=== PATIENT | male | born 1955 | race Caucasian/White ===

== ENCOUNTER 2019-07-16 16:12 | Emergency (ER) | payer BC ==
[~2019-07-16] VITALS: Ht 172.7 cm; Wt 122.5 kg
[2019-07-16 16:38] VITALS: BP 154/98
--- NOTE | 2019-07-16 16:45 | NUR ---
63 Y/O M PRESENTS TO ER C/O SPINTERS IN FINGERS. SPLINTERS IN RIGHT HAND FIRST DIGIT, AND RIGHT PALM X 2 DAYS. PT ALSO HAS SPLINTER IN LEFT FIRST DIGIT X 2 MONTHS. PAIN LEVEL 7/10, ACHING. ALLERGIES: NKA. MED HX: NONE. SURGERY: STENT PLACEMENT IN 2005 AND A FOOT SURGERY. PT SITTING IN CHAIR C. MITCHEL MADE AWARE OF PT STATUS.
--- NOTE | 2019-07-16 16:45 | NUR ---
Note undone in EDM - 07/16/19 at [address] [facility] 63 Y/O M PRESENTS TO ER C/O SPINTERS IN FINGERS. SPLINTERS IN RIGHT HAND FIRST DIGIT, AND RIGHT PALM X 2 DAYS. PT ALSO HAS SPLINTER IN LEFT FIRST DIGIT X 2 MONTHS. PAIN LEVEL 7/10, ACHING. ALLERGIES: NKA. MED HX: NONE. SURGERY: STENT PLACEMENT IN 2005 AND A FOOT SURGERY. PT SITTING IN CHAIR John GRULLON MADE AWARE OF PT STATUS.
[2019-07-16] MEDS ORDERED: LIDOCAINE MPF 1% 10 MG/ML VIAL INJ ONE (17:15)
--- NOTE | 2019-07-16 17:58 | NUR ---
PATIENT AMBULATE TO BED 1.
--- NOTE | 2019-07-16 18:39 | NUR ---
MITCHEL PUGH GIVEN LIDOCAIN, 15 BLADE AND BETADINE AT BEDSIDE FOR PROCEDURE
[2019-07-16 19:04] VITALS: BP 139/69
--- NOTE | 2019-07-16 19:08 | NUR ---
gave report to [facility]
--- NOTE | 2019-07-16 19:08 | NUR ---
REPORT RECEIVED FROM MARCY AVALOS. ASSUMED CARE AT THIS TIME. PT IN STABLE CONDITON.
--- NOTE | 2019-07-16 19:40 | NUR ---
BACITRACIN AND A NON ADHERENT GAUZE PLACED ON PTS WOUND. PTS PMSC WNL.
[2019-07-16] MEDS ORDERED: BACITRACIN OINT 500 UNITS/GM PKT TP ONE (19:50)
--- NOTE | 2019-07-16 19:56 | NUR ---
Patient discharged with v/s stable. Written and verbal after care instructions given and explained. Patient alert, oriented and verbalized understanding of instructions. Ambulatory with steady gait. All questions addressed prior to discharge. ID band removed. Patient advised to follow up with PMD. Rx of keflex, bacitrcin, and ibuprofen given. Patient educated on indication of medication including possible reaction and side effects. Opportunity to ask questions provided and answered.
== END 2019-07-16 19:56 | disposition home or self-care (01) ==
LOC: MED 16:12
DX: S60.552A Superficial foreign body of left hand, initial encounter (principal); S60.551A Superficial foreign body of right hand, initial encounter; I10 Essential (primary) hypertension; Z86.79 Personal history of other diseases of the circulatory system; W45.8XXA Other foreign body or object entering through skin, initial encounter; Y93.89 Activity, other specified; Y92.89 Other specified places as the place of occurrence of the external cause; Y99.8 Other external cause status
CPT/HCPCS: 10120; 99284; J2001